=== PATIENT | female | born 1985 | race Two or more races ===

== ENCOUNTER 2018-10-23 10:29 | Emergency (ER) | payer OTHER ==
--- NOTE | 2018-10-23 11:29 | EDPHY ---
H & P Stated Complaint: low back pain x 3 days/may have fallen on new years Time Seen by Provider: 10/23/18 11:16 HPI/ROS: CHIEF COMPLAINT: Low back pain x3 days HISTORY OF PRESENT ILLNESS: 33-year-old female visiting [place], in the ER with her partner complaining atraumatic low back pain for the past 3 days , not relieved with aspirin. She describes few days ago she slipped and twisted her back. No direct trauma or fall. PRIMARY CARE PROVIDER: REVIEW OF SYSTEMS: A ten point review of systems was performed and is negative with the exception of the items mentioned in the HPI PAST MEDICAL & SURGICAL HISTORY: No pertinent medical or surgical history SOCIAL HISTORY: In the ER with her visiting from [place] on her honeymoon PHYSICAL EXAM (Prior to examination, patient consented to physical exam, hands were washed and my usual and customary physical exam procedures followed) 1) GENERAL: Well-developed, well-nourished, alert and oriented. 2) HEAD: Normocephalic, atraumatic 3) HEENT: Pupils equal, round, reactive to light bilaterally. Sclera anicteric. Nasopharynx, oropharynx, clear, no lesions. 4) NECK: Full range of motion, no meningeal signs. 5) LUNGS: Clear auscultation bilaterally, no wheezes, no rhonchi, no retractions. 6) HEART: Regular rate and rhythm, no murmur, no heave, no gallop. 7) ABDOMEN: No guarding, no rebound, no focal tenderness, negative McBurney's, negative Arais's, negative Rovsing's, negative peritoneal sign, 8) MUSCULOSKELETAL: Moving all extremities, no focal areas of tenderness, no obvious trauma. No peripheral edema or discoloration. 9) BACK: tender to palpation paraspinous muscle. No CVA tenderness, no midline vertebral tenderness, no fluctuance, no step-off, no obvious trauma, no visual or palpable abnormality. Patella, Achilles reflexes intact to bilateral strength 5/5 10) SKIN: No rash, no petechiae. 11) NEURO: Awake, alert, and oriented to person, place and time. Answers questions appropriately. There were no obvious focal neurologic abnormalities. No cerebellar dysfunction. Normal steady gait. Upper and lower extremities bilaterally with strength 5 / 5, reflexes 2+.. DIFFERENTIAL DIAGNOSIS: In no particular order, including but not limited to, fracture, sprain/strain, cauda equina, spinal infectious etiology. MEDICAL DECISION MAKING 11:20 a.m.:. Lower index of suspicion for cauda equina, epidural abscess, epidural hematoma, lumbar myositis, diskitis, as the patient is neurologically intact in the lower extremities, has patella and Achilles reflexes intact and equal bilaterally, has no neurologic deficits, no incontinence, no retention, no midline pain, no fluctuance, afebrile, no flulike symptoms. Pain may be secondary to muscular strain, may be secondary to discogenic etiology. At this point I do not identify definitive indication for emergent MRI, however patient may necessitate this on an outpatient basis. 12:50 p.m.: Re-evaluation after analgesia. Sleeping. States that she is feeling improvement. Will attempt to ambulate the patient. 1:15 p.m.: Patient has ambulated without assistance. She is feeling improved. I offered admission which she declines. She would like to be discharged with her , they will be at a local hotel.Patient given acute back pain precautions. Care of patient under supervision of secondary supervising physician Dr Karolina Kumar with whom I discussed case. Patient verbalizes understanding of discharge instructions. I believe them be competent decision- makers. All questions and concerns have been addressed by me. Ample opportunity for questions have been provided . The patient understands that this diagnosis is provisional and can never be 100% accurate. Usual and customary warnings were given concerning the clinical impression and all the patient's questions were answered. The patient was instructed to return to the emergency department should her symptoms worsen or return, or develop any new symptoms, otherwise to followup as directed in discharge instructions. - Personal History LMP (Females 10-55): 1-7 Days Ago Current Tetanus Diphtheria and Acellular Pertussis (TDAP): Yes - Medical/Surgical History Hx Asthma: No Hx Chronic Respiratory Disease: No Hx Diabetes: No Hx Cardiac Disease: No Hx Renal Disease: No Hx Cirrhosis: No Hx Alcoholism: No Hx HIV/AIDS: No Hx Splenectomy or Spleen Trauma: No Other PMH: denies - Social History Smoking Status: Never smoked Constitutional: Initial Vital Signs Temperature (C) 36.6 C 10/23/18 10:34 Heart Rate 95 10/23/18 10:34 Respiratory Rate 18 10/23/18 10:34 Blood Pressure 135/88 H 10/23/18 10:34 O2 Sat (%) 97 10/23/18 10:34 O2 Delivery Mode Room Air Allergies/Adverse Reactions: No Known Allergies Allergy (Unverified 10/23/18 10:33) Home Medications: Medication Instructions Recorded Adderall 10 MG (*) 10/23/18 Cyclobenzaprine [Flexeril 10 MG 10 mg PO TID #15 tab 10/23/18 (RX)] LaMICtal 10/23/18 Lidocaine 5% [Lidoderm 5% Patch 1 ea TD BID #30 patch 10/23/18 (*)] Medical Decision Making - Data Points Laboratory Results: Laboratory Results 10/23/18 11:52 10/23/18 11:52 10/23/18 10/23/18 10/23/18 11:52 11:52 11:52 WBC 9.56 10^3/uL H 10^3/uL (3.80-9.50) RBC 4.73 10^6/uL 10^6/uL (4.18-5.33) Hgb 13.6 g/dL g/dL (12.6-16.3) Hct 42.4 % % (38.0-47.0) MCV 89.6 fL fL (81.5-99.8) MCH 28.8 pg pg (27.9-34.1) MCHC 32.1 g/dL L g/dL (32.4-36.7) RDW 12.4 % % (11.5-15.2) Plt Count 373 10^3/uL 10^3/uL (150-400) MPV 8.8 fL fL (8.7-11.7) Neut % (Auto) 63.9 % % (39.3-74.2) Lymph % (Auto) 27.9 % % (15.0-45.0) [place] % (Auto) 5.4 % % (4.5-13.0) Eos % (Auto) 2.0 % % (0.6-7.6) Baso % (Auto) 0.4 % % (0.3-1.7) Nucleat RBC Rel Count 0.0 % % (0.0-0.2) Absolute Neuts (auto) 6.10 10^3/uL 10^3/uL (1.70-6.50) Absolute Lymphs (auto) 2.67 10^3/uL 10^3/uL (1.00-3.00) Absolute Monos (auto) 0.52 10^3/uL 10^3/uL (0.30-0.80) Absolute Eos (auto) 0.19 10^3/uL 10^3/uL (0.03-0.40) Absolute Basos (auto) 0.04 10^3/uL 10^3/uL (0.02-0.10) Absolute Nucleated RBC 0.00 10^3/uL 10^3/uL (0-0.01) Immature Gran % 0.4 % % (0.0-1.1) Immature Gran # 0.04 10^3/uL 10^3/uL (0.00-0.10) Sodium 136 mEq/L mEq/L (135-145) Potassium 4.7 mEq/L mEq/L (3.5-5.2) Chloride 104 mEq/L mEq/L (97-110) Carbon Dioxide 25 mEq/l mEq/l (22-31) Anion Gap 7 mEq/L mEq/L (6-14) BUN 13 mg/dL mg/dL (7-23) Creatinine 0.5 mg/dL L mg/dL (0.6-1.0) Estimated GFR > 60 Glucose 92 mg/dL mg/dL (70-100) Calcium 9.0 mg/dL mg/dL (8.5-10.4) Beta HCG, Qual NEGATIVE Medications Given: Discontinued Medications Dexamethasone (Decadron Injection) 8 mg IVP EDNOW ONE Stop: 10/23/18 11:33 Last Admin: 10/23/18 11:53 Dose: 8 mg Diazepam (Valium) 5 mg IVP EDNOW ONE Stop: 10/23/18 11:33 Last Admin: 10/23/18 11:53 Dose: 5 mg Ketorolac Tromethamine (Toradol) 15 mg IVP EDNOW ONE Stop: 10/23/18 11:33 Last Admin: 10/23/18 11:54 Dose: 15 mg Miscellaneous Medication (Icy Hot Lidocaine/Menthol 4%/1% Patch) 1 patch TD EDNOW ONE Stop: 10/23/18 11:33 Last Admin: 10/23/18 11:54 Dose: 1 patch Departure - Departure Disposition: Home, Routine, Self-Care Clinical Impression: Acute low back pain Condition: Good Instructions: Acute Low Back Pain (ED) Additional Instructions: Seek medical attention if you develop new or worsening pain, if you develop bladder or bowel dysfunction, numbness around your perineum, foot drop, or any other symptoms that concern you. Referrals: Horace Figueroa MD [Medical Doctor] - 2-3 days, call for appt. Prescriptions: Cyclobenzaprine [Flexeril 10 MG (RX)] 10 mg PO TID #15 tab Lidocaine 5% [Lidoderm 5% Patch (*)] 1 ea TD BID #30 patch
[2018-10-23] MEDS ORDERED: DIAZEPAM 5 MG/ML 1 ML SYR IVP ONE (11:32)
[2018-10-23] MEDS ORDERED: DEXAMETHASONE 4 MG/ML VIAL IVP ONE (11:32)
[2018-10-23] MEDS ORDERED: KETOROLAC 15 MG/1 ML SDV IVP ONE (11:32)
[2018-10-23] MEDS ORDERED: LIDOCAINE 4%/MENTHOL 1% PATCH TD ONE (11:32)
[2018-10-23 12:07] LABS: PLATELET COUNT 373 10^3/uL (150-400)
--- NOTE | 2018-10-23 12:59 | ASMTCAGE ---
CAGE Do you feel you ought to Answers: No cut down on your drinking or drug use? Do people annoy you by Answers: No criticizing your drinking or drug use? Do you feel guilty about Answers: No your drinking or drug use? Do you drink or use drugs Answers: No first thing in the morning (Eye Bun Panner)? Additional Comments Patient in [place] visiting and admits to drinking more than usual on SAMIR Date Signed: 10/23/2018 12:58 PM Electronically Signed By:Ella Delgadillo RN
[2018-10-23 13:42] VITALS: BP 121/67
[2018-10-23] MEDS ORDERED: PATCH REMOVAL 1 EA PATCH TD SCH (21:00)
== END 2018-10-23 13:42 | disposition home or self-care (01) ==
DX: M54.5 Low back pain (principal); G89.11 Acute pain due to trauma
CPT/HCPCS: 96374; J1100; J1885; J3360